=== PATIENT | male | born 1965 | race African-American/Black ===

== ENCOUNTER 2019-11-02 02:44 | Emergency (ER) | payer MEDICAID ==
[~2019-11-02] VITALS: Ht 175.3 cm; Wt 94.0 kg
[2019-11-02] MEDS ORDERED: HYDROCODONE/ACETAMINOPHEN 5/325MG TABLET PO NR (04:15)
[2019-11-02 06:00] VITALS: BP 147/87
== END 2019-11-02 06:00 | disposition home or self-care (01) ==
LOC: ER 02:44
DX: S76.119A Strain of unspecified quadriceps muscle, fascia and tendon, initial encounter (principal); I10 Essential (primary) hypertension; Z88.0 Allergy status to penicillin; X58.XXXA Exposure to other specified factors, initial encounter; Y93.89 Activity, other specified; Y92.89 Other specified places as the place of occurrence of the external cause; Y99.8 Other external cause status
CPT/HCPCS: 99283